=== PATIENT | female | born 1955 | race Two or more races ===

== ENCOUNTER 2024-07-29 02:05 | Emergency (ER) | payer OTHER ==
[~2024-07-29] VITALS: Ht 170.2 cm; Wt 80.3 kg
[2024-07-29] MEDS ORDERED: ASCOMP WITH CO1 EACH PO (02:18)
[2024-07-29] MEDS ORDERED: FAMOTIDINE/PF 20 MG/2 ML VIAL IV PUSH ONE (03:45)
[2024-07-29] MEDS ORDERED: 0.9 % SODIUM CHLORIDE 1,000 ML IV SCH (03:45)
[2024-07-29] MEDS ORDERED: ONDANSETRON HCL 2 MG/ML VIAL IV ONE (03:45)
[2024-07-29] MEDS ORDERED: PROMETHAZINE HCL 25 MG/ML AMPUL IM STA (04:28)
[2024-07-29 04:53] LABS: URINE APPEARANCE Turbid; URINE BILIRRUBIN Negative (NEGATIVE); URINE BLOOD Negative; URINE COLOR Yellow; URINE GLUCOSE Negative (NEGATIVE); URINE KETONE 15 (NEGATIVE); URINE LEUKOCYTE Negative; URINE NITRATE Negative; URINE PROTEIN Negative (NEGATIVE); URINE UROBILINOGEN 0.2 E.U./dl
[2024-07-29 04:55] LABS: HEMATOCRIT 39.6 % (36.0-45.00); HEMOGLOBIN 13.5 g/dL (12.0-15.00); MEAN CELL VOLUME 90.9 fL (80.00-100.00); MEAN CORPUSCULAR HGB CONC 34.1 g/dl (32.0-36.0); PLATELET COUNT 188 K/uL (150-450); RED BLOOD COUNT 4.35 M/uL (4.00-6.00); RED CELL DISTRIBUTION WIDTH 14.4 % (11.5-14.5)
[2024-07-29 04:56] LABS: URINE EPITHELIAL CELLS 53.1 uL (0.0-38.8); URINE RBC 4.4 uL (0.0-20.8)
[2024-07-29 05:14] LABS: ALBUMIN 3.8 gm/dL (3.4-5.0); BILIRUBIN TOTAL 0.45 mg/dL (0.3-1.2); CALCIUM 9.4 mg/dL (8.5-10.1); CREATININE SERUM 0.98 mg/dL (0.55-1.02); GFR 56.1; GLOBULINA 3.3 G/DL (2.4-3.5); POTASSIUM 3.96 mEq/L (3.5-5.1); TOTAL PROTEIN 7.1 gm/dL (6.4-8.2)
[2024-07-29] MEDS ORDERED: FAMOTIDINE/PF 20 MG/2 ML VIAL IV PUSH STA (06:23)
[2024-07-29] MEDS ORDERED: ONDANSETRON HCL 2 MG/ML VIAL IV STA (06:23)
[2024-07-29] MEDS ORDERED: CEFTRIAXONE SODIUM 1,000 MG VIAL IV STA (06:24)
== END 2024-07-29 12:33 | disposition home or self-care (01) ==
LOC: ER 02:07
PROVIDERS: General Practice
DX: K81.9 Cholecystitis, unspecified (principal); R10.13 Epigastric pain; R11.10 Vomiting, unspecified; N39.0 Urinary tract infection, site not specified; R10.9 Unspecified abdominal pain
CPT/HCPCS: 36415; 76700; 96365; 96366; 96372; 99284; J0696; J2405 ×2; J3490 ×3; J7030